=== PATIENT | female | born 1990 | race Caucasian/White ===

== ENCOUNTER 2018-04-30 13:43 | Emergency (ER) | payer SELFPAY ==
[~2018-04-30] VITALS: Ht 165.1 cm; Wt 84.6 kg
[2018-04-30 14:05] LABS: APPEARANCE CLOUDY ((CLEAR)); BILIRUBIN NEGATIVE; BLOOD LARGE; COLOR AMBER ((YELLOW)); GLUCOSE (STRIP) NEGATIVE; KETONES NEGATIVE; LEUKOCYTES LARGE; NITRITE POSITIVE; PROTEIN (STRIP) 100; UROBILINOGEN 0.2 MG/DL (0.2-1.0)
[2018-04-30 14:20] LABS: EPITHELIAL CELLS 2+ /HPF; MUCUS NONE SEEN /LPF; RED BLOOD CELLS TNTC /HPF (0-5); WHITE BLOOD CELLS TNTC /HPF (0-5)
[2018-04-30 14:21] LABS: BACTERIA 2+ /HPF; UCUL ADDED? YES
[2018-04-30] MEDS ORDERED: PYRIDIUM200 MG PO (15:34)
[2018-04-30] MEDS ORDERED: KEFLEX500 MG PO (15:34)
[2018-04-30 16:58] VITALS: BP 115/80
== END 2018-04-30 17:13 | disposition home or self-care (01) ==
LOC: EME 13:43 → EDBD 13:43 → EME 17:13
DX: N30.91 Cystitis, unspecified with hematuria (principal); F17.200 Nicotine dependence, unspecified, uncomplicated
CPT/HCPCS: 81003; 81025; 87077; 87086; 87186; 99281; 99284